=== PATIENT | male | born 1980 | race Caucasian/White ===

== ENCOUNTER → 2016-11-17 | Outpatient (CLI) | payer MEDICARE, OTHER | LOC: KOH-I 08:45 | DX: M25.561 Pain in right knee (principal); S83.281A Other tear of lateral meniscus, current injury, right knee, initial encounter; R60.0 Localized edema | CPT/HCPCS: 73721 ==

== ENCOUNTER 2017-01-22 12:38 | Emergency (ER) | payer MEDICARE, OTHER | END 2017-01-22 13:40 | disposition home or self-care (01) | LOC: ER1 12:38 | DX: S83.91XA Sprain of unspecified site of right knee, initial encounter (principal); I10 Essential (primary) hypertension; X58.XXXA Exposure to other specified factors, initial encounter | CPT/HCPCS: 96372; 99283; J1885 ==

== ENCOUNTER → 2020-12-12 | Outpatient (CLI) | payer MEDICARE, OTHER ==
[~2020-12-12] MED LIST: CYCLOBENZAPRINE5 MG PO; IBUPROFEN800 MG PO
== END ==
LOC: HEART 5 09:54
DX: R05 Cough (principal)
CPT/HCPCS: 94060; 94729